=== PATIENT | female | born 1965 | race African-American/Black ===

== ENCOUNTER 2017-08-14 22:55 | Emergency (ER) | payer OTHER ==
[~2017-08-14] VITALS: Ht 157.5 cm; Wt 89.4 kg
--- NOTE | ~2017-08-14 | HC ---
[facility] [place] [address] CONSULTATION Name: MICAELA BEST Room #: DEP Ramana#: [id number] Admission: 08/14/17 Attend Phys: Discharge: 08/15/17 Date of : 63 Report #: [id number] THIS REPORT FOR: //name// CC: CHARLIE Celeste DATE OF SERVICE: 08/15/2017 HISTORY OF PRESENT ILLNESS: The patient is a 51-year-old female who was eating chicken last evening, which became stuck. She was unable to swallow her saliva after this. I received a phone call on 08/15/2017 at approximately 1:00 in the morning. I spoke to the Emergency Room physician and plan is for EGD later this morning. The patient has been having dysphagia and was actually seen by another front desk supervisor, Dr. Leigh, underwent an upper endoscopy early July of this year in which she was noted to have a mild narrowing in her cricopharyngeal area. She states she feels as if food impaction is low at this time. She was apparently given glucagon in the Emergency Room and this did not resolve her dysphagia and food impaction. She does have a history of some reflux. She is taking Protonix on a regular basis. She denies any shortness of breath. No fevers or chills. PAST MEDICAL HISTORY: History of dysphagia, gastroesophageal reflux disease, history of constipation and depression. MEDICATIONS ON ADMISSION: MiraLax, prazosin, Prozac, Ambien, Bentyl, Singulair, oxybutynin, Zovirax. REVIEW OF SYSTEMS: As per HPI. SOCIAL HISTORY: She denies any tobacco or alcohol use. FAMILY HISTORY: Negative for colon cancer. The patient apparently had a colonoscopy within the last few years in which polyps were removed. PHYSICAL EXAMINATION: VITAL SIGNS: Temperature is 98.3, pulse 51, blood pressure 110/67, respiratory rate is 16. GENERAL: She is alert and oriented x 3, in no acute distress. HEENT: Sclerae nonicteric. Oropharynx clear. NECK: Supple, without lymphadenopathy. CARDIOVASCULAR: Regular rate and rhythm. CHEST: Clear to auscultation bilaterally. ABDOMEN: Soft. She is nontender, nondistended, normoactive bowel sounds. EXTREMITIES: No cyanosis, clubbing or edema. [facility] [address] [place] [address] CONSULTATION Name: MICAELA BEST Room #: DEP [facility].#: [id number] Admission: 08/14/17 Attend Phys: Discharge: 08/15/17 Date of : 63 Report #: [id number] LABORATORY DATA: Sodium 140, potassium 3.9, chloride 107, bicarbonate 26, BUN 15, creatinine 0.9, AST 17, lipase 150, total bilirubin 0.2, alkaline phosphatase 83, ALT is 25, albumin 3.4. WBC is 6.6, hemoglobin 12.5, platelet count is 171. UA was negative. HCG is negative. ASSESSMENT AND PLAN: Dysphagia, food impaction. We will proceed with upper endoscopy for further evaluation. We will make further recommendations after endoscopy. Thank you for allowing me to participate in her care. <ELECTRONICALLY SIGNED> By: Emre Mcelroy MD 08/16/17 0809 0830 1212 Emre Mcelroy MD /nt
--- NOTE | ~2017-08-14 | P ---
[facility] [place] [address] PROCEDURE REPORT Name: MICAELA BEST [id number] Admission: 08/14/17 Attend Phys: Discharge: 08/15/17 Date of : 63 Report #: [id number] THIS REPORT FOR: //name// CC: CHARLIE Celeste DATE OF SERVICE: 08/15/2017 PROCEDURE PERFORMED: Upper endoscopy with esophageal dilation. HISTORY OF PRESENT ILLNESS: The patient is a 51-year-old female with a history of dysphagia; gastroesophageal reflux disease, on Protonix; was eating chicken last evening when this became stuck. She has had a recent upper endoscopy with dilation of a cricopharyngeal narrowing at the beginning of July by Dr. Leigh. Plan is for EGD. DESCRIPTION OF PROCEDURE: The risks and benefits of the procedure were explained to the patient, those risks including but not limited to bleeding, perforation, the risk of sedation. She understood these risks and gave informed consent. Sedation was given using propofol per Anesthesia. Next, using a standard Lecorpioinon upper endoscope, the scope was placed in the patient's mouth and advanced under direct vision through the esophagus, stomach and into the second portion of the duodenum. The larynx was normal in appearance. There was mild narrowing in the upper esophagus. No food bolus was noted throughout the esophagus today. The mid and distal esophagus was normal. The GE junction was normal. No stricture or distal bleeding. Overall, the gastric mucosa was normal. No evidence of food within the stomach. The pylorus was normal and patent. The duodenal bulb, first and second portion were all normal. The scope was then brought back up into the patient's stomach and a Savary guidewire was inserted through the scope, leaving the guidewire in place as the scope was then withdrawn. Next, a 51-Armenian Savary dilation of the esophagus was then performed without difficulty. The wire and dilator removed. The scope was reintroduced into the patient's stomach. There was a small mucosal tear in the upper esophagus after dilation. No bleeding was noted. At this point, the scope was then withdrawn and the procedure terminated. The patient tolerated the procedure well. IMPRESSION: 1. Mild narrowing of the proximal esophagus, status post dilation. 2. No evidence of food impaction at this time. The patient likely passed on her own. 3. Otherwise, normal upper endoscopy. RECOMMENDATIONS: [address] [address] PROCEDURE REPORT Name: MICAELA BEST Room #: DEP ER Ramana#: [id number] Admission: 08/14/17 Attend Phys: Discharge: 08/15/17 Date of : 63 Report #: [id number] 1. Observe the patient post-dilation. 2. Would followup with Dr. Leigh, her agriculture manager. Thank you for allowing me to participate in her care. <ELECTRONICALLY SIGNED> By: Emre Mcelroy MD 08/15/17 1128 0832 1120 Emre Mcelroy MD /chang
[2017-08-15 00:43] LABS: ABSOLUTE NEUTROPHILS 3.3 thou/uL (1.4-8.2); BASOPHILS 0.5 % (0.0-2.0); EOSINOPHILS 1.6 % (0.0-3.0); HEMATOCRIT 37.3 % (37.0-47.0); HEMOGLOBIN 12.5 gm/dL (12.0-15.0); LYMPHOCYTES 42.1 % (24.0-44.0); MCHC 33.5 g/dL (28.0-37.0); MCV 86.6 fL (80.0-100.0); MONOCYTES 6.3 % (1.0-8.0); PLATELET COUNT 171 thou/uL (150-400); POLYS 49.5 % (36.0-66.0); RBC 4.31 mil/uL (4.20-5.00); RDW 13.7 % (10.5-14.5); WBC 6.6 thou/uL (4.0-11.0)
[2017-08-15 00:45] LABS: URINE BILIRUBIN NEGATIVE (Negative); URINE BLOOD NEGATIVE (Negative); URINE CLARITY CLEAR; URINE COLOR YELLOW; URINE GLUCOSE-RANDOM* NEGATIVE (Negative); URINE KETONES NEGATIVE (Negative); URINE LEUKOCYTES-REFLEX NEGATIVE (Negative); URINE NITRITE-REFLEX NEGATIVE (Negative); URINE PROTEIN (DIPSTICK) NEGATIVE (Negative); URINE SPECIFIC GRAVITY <= 1.005 (1.005-1.035); URINE UROBILINOGEN 0.2 E.U./dl (0.2-1.0)
[2017-08-15 00:51] LABS: CREATININE 0.9 mg/dL (0.6-1.0); POTASSIUM 3.9 mmol/L (3.5-5.1)
[2017-08-15 00:57] LABS: ALBUMIN 3.4 g/dL (3.4-5.0); TOTAL BILIRUBIN 0.2 mg/dL (<0.1-1.0); TOTAL PROTEIN 6.6 g/dL (6.4-8.2)
[2017-08-15] MEDS ORDERED: TRIAMCINOLONE A80 G2 TOP (01:03)
[2017-08-15] MEDS ORDERED: MIRALAX17 GM PO (01:04)
[2017-08-15] MEDS ORDERED: PRAZOSIN 1 MG CA1 M1 PO (01:06)
[2017-08-15] MEDS ORDERED: PROZAC20 MG PO ×2 (01:07→01:13)
[2017-08-15] MEDS ORDERED: AMBIEN 5 MG TABL5 M1 PO ×2 (01:07→01:13)
[2017-08-15] MEDS ORDERED: BENTYL 20 MG TA20 M1 PO (01:08)
[2017-08-15] MEDS ORDERED: SINGULAIR 10 MG10 M1 PO (01:09)
[2017-08-15] MEDS ORDERED: OXYBUTYNIN 5 MG5 M2 PO (01:10)
[2017-08-15] MEDS ORDERED: ACYCLOVIR 400400 MG PO (01:11)
[2017-08-15] MEDS ORDERED: ACCUNEB SO1.25 MG/1 INH (01:12)
[2017-08-15] MEDS ORDERED: BISACODYL SUPP10 MG RECTAL (01:14)
[2017-08-15 07:20] VITALS: BP 110/67
== END 2017-08-15 07:21 | disposition home or self-care (01) ==
LOC: ER 22:55
PROVIDERS: Emergency Medicine
DX: T18.128A Food in esophagus causing other injury, initial encounter (principal); X58.XXXA Exposure to other specified factors, initial encounter; Y93.89 Activity, other specified; Y92.89 Other specified places as the place of occurrence of the external cause; Y99.8 Other external cause status
CPT/HCPCS: 62110; 62900

== ENCOUNTER 2017-09-24 01:43 | Emergency (ER) | payer OTHER ==
[~2017-09-24] VITALS: Ht 157.5 cm; Wt 89.8 kg
--- NOTE | ~2017-09-24 | EKG ---
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
[~2017-09-24 01:43] MED LIST: ACCUNEB SO1.25 MG/1 INH; ACYCLOVIR 400400 MG PO; AMBIEN 5 MG TABL5 M1 PO; BENTYL 20 MG TA20 M1 PO; BISACODYL SUPP10 MG RECTAL; MIRALAX17 GM PO; OXYBUTYNIN 5 MG5 M2 PO; PRAZOSIN 1 MG CA1 M1 PO; PROZAC20 MG PO; SINGULAIR 10 MG10 M1 PO; TRIAMCINOLONE A80 G2 TOP
[2017-09-24 02:44] LABS: URINE BILIRUBIN NEGATIVE (Negative); URINE BLOOD NEGATIVE (Negative); URINE CLARITY CLEAR; URINE COLOR YELLOW; URINE GLUCOSE-RANDOM* NEGATIVE (Negative); URINE KETONES NEGATIVE (Negative); URINE NITRITE-REFLEX NEGATIVE (Negative); URINE PROTEIN (DIPSTICK) NEGATIVE (Negative); URINE SPECIFIC GRAVITY <= 1.005 (1.005-1.035); URINE UROBILINOGEN 0.2 E.U./dl (0.2-1.0)
[2017-09-24 02:46] LABS: ABSOLUTE NEUTROPHILS 3.4 thou/uL (1.4-8.2); BASOPHILS 0.4 % (0.0-2.0); EOSINOPHILS 1.7 % (0.0-3.0); HEMOGLOBIN 12.6 gm/dL (12.0-15.0); LYMPHOCYTES 41.4 % (24.0-44.0); MCH 28.6 pg (26.0-34.0); MCHC 33.2 g/dL (28.0-37.0); MCV 86.2 fL (80.0-100.0); MONOCYTES 6.2 % (1.0-8.0); PLATELET COUNT 183 thou/uL (150-400); POLYS 50.3 % (36.0-66.0); RDW 13.1 % (10.5-14.5); WBC 6.7 thou/uL (4.0-11.0)
[2017-09-24 02:47] LABS: POTASSIUM 3.3 mmol/L (3.5-5.1)
[2017-09-24 02:49] LABS: URINE LEUKOCYTES-REFLEX TRACE (Negative)
[2017-09-24 02:53] LABS: ALBUMIN 3.6 g/dL (3.4-5.0); TOTAL BILIRUBIN 0.4 mg/dL (<0.1-1.0); TOTAL PROTEIN 6.7 g/dL (6.4-8.2)
[2017-09-24] MEDS ORDERED: ZOFRAN ODT8 MG PO (04:17)
[2017-09-24 04:19] VITALS: BP 118/71
== END 2017-09-24 04:26 | disposition home or self-care (01) ==
LOC: ER 01:43
PROVIDERS: Emergency Medicine
DX: T18.120A Food in esophagus causing compression of trachea, initial encounter (principal); K22.2 Esophageal obstruction; K21.9 Gastro-esophageal reflux disease without esophagitis; Z88.0 Allergy status to penicillin; X58.XXXA Exposure to other specified factors, initial encounter; Y93.89 Activity, other specified; Y92.89 Other specified places as the place of occurrence of the external cause; Y99.8 Other external cause status

== ENCOUNTER 2017-11-12 13:42 | Emergency (ER) | payer OTHER ==
[~2017-11-12] VITALS: Ht 157.5 cm; Wt 89.8 kg
--- NOTE | ~2017-11-12 | EKG ---
[place] [address] [facility] [place] [address] ELECTROCARDIOGRAM REPORT Name: MICAELA BEST Room #: DEP Ramana#: [id number] Admission: 11/12/17 Attend Phys: Discharge: 11/12/17 Date of : 63 Report #: [id number] THIS REPORT FOR: //name// [facility] ED Test Date: 2017-11-12 Test Time: 13:48:04 Pat Name: MICAELA BEST Department: Room: Gender: F Jack Prizer: [facility] : 1965 Requested By: Ness Patel Order Number: [id number] MD: Mirza Canseco Measurements Intervals [place] Rate: 57 P: 38 RI: 156 QRS: 31 QRSD: 88 T: 23 QT: 425 QTc: 414 Interpretive Statements Sinus bradycardia Borderline T wave abnormalities Compared to ECG 09/24/2017 01:51:27 No significant change was found Electronically Signed On 11-13-2017 14:06:34 CDT by Mirza Canseco [email or web address] <ELECTRONICALLY SIGNED> By: Mirza Canseco MD, [facility] 11/13/17 1406 1348 1348 Mirza Canseco MD, FACC /EPI
[~2017-11-12 13:42] MED LIST changes: +ZOFRAN ODT8 MG PO
[2017-11-12 18:46] VITALS: BP 125/72
== END 2017-11-12 18:47 | disposition home or self-care (01) ==
LOC: ER 13:42
DX: K20.9 Esophagitis, unspecified (principal); K22.4 Dyskinesia of esophagus; L94.0 Localized scleroderma [morphea]; K21.9 Gastro-esophageal reflux disease without esophagitis; Z88.0 Allergy status to penicillin
CPT/HCPCS: 62110; 62900

== ENCOUNTER 2018-06-24 16:07 | Emergency (ER) | payer OTHER ==
[~2018-06-24] VITALS: Ht 157.5 cm; Wt 94.8 kg
[2018-06-24] MEDS ORDERED: UNICOMPLEX M TA1 TA1 PO (16:38)
[2018-06-24] MEDS ORDERED: BENTYL 10 MG CA10 M1 PO (16:39)
[2018-06-24] MEDS ORDERED: OXYBUTYNIN 5 MG5 M2 PO (16:39)
[2018-06-24] MEDS ORDERED: SINGULAIR 10 MG10 M1 PO (16:39)
[2018-06-24] MEDS ORDERED: DULCOLAX10 MG RECTAL (16:40)
[2018-06-24] MEDS ORDERED: PROTONIX40 M1 PO (16:41)
[2018-06-24] MEDS ORDERED: ZANTAC 150MG T150 MG PO (16:41)
[2018-06-24] MEDS ORDERED: NAPROSYN500 MG PO (16:57)
[2018-06-24] MEDS ORDERED: NORFLEX100 MG PO (16:57)
[2018-06-24 17:14] VITALS: BP 128/81
--- NOTE | 2018-06-25 22:06 | EKG ---
[address] [address] ELECTROCARDIOGRAM REPORT Name: MICAELA BEST Room #: [facility] Ramana#: [id number] Admission: 06/24/18 Attend Phys: Discharge: 06/24/18 Date of : 63 Report #: [id number] THIS REPORT FOR: //name// 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 : 1965 Requested By: Ramon Lunsford Order Number: [id number] MD: Moustapha Santiago Measurements Intervals [place] Rate: 63 P: 37 GA: 155 QRS: 22 QRSD: 88 T: 31 QT: 408 QTc: 418 Interpretive Statements Sinus rhythm Compared to ECG 11/12/2017 13:48:04 Sinus bradycardia no longer present T-wave abnormality no longer present Electronically Signed On 06-25-2018 22:05:53 ORGANIZATIONAL EFFECTIVENESS CONSULTANT by Moustapha Santiago [email or web address] <ELECTRONICALLY SIGNED> By: Moustapha Santiago MD 06/25/18 2205 21 21 Moustapha Santiago MD /MARINO
== END 2018-06-24 17:15 | disposition home or self-care (01) ==
LOC: ER 16:07
DX: M43.6 Torticollis (principal); K21.9 Gastro-esophageal reflux disease without esophagitis; Z88.0 Allergy status to penicillin

== ENCOUNTER 2018-08-25 23:35 | Emergency (ER) | payer OTHER ==
[~2018-08-25] VITALS: Ht 157.5 cm; Wt 95.7 kg
[~2018-08-25 23:35] MED LIST changes: +BENTYL 10 MG CA10 M1 PO; +DULCOLAX10 MG RECTAL; +NAPROSYN500 MG PO; +NORFLEX100 MG PO; +PROTONIX40 M1 PO; +UNICOMPLEX M TA1 TA1 PO; +ZANTAC 150MG T150 MG PO
[2018-08-25 23:52] LABS: BASOPHILS 0.5 % (0.0-2.0); EOSINOPHILS 1.7 % (0.0-3.0); HEMATOCRIT 40.9 % (37.0-47.0); HEMOGLOBIN 13.6 gm/dL (12.0-15.0); LYMPHOCYTES 40.2 % (24.0-44.0); MCH 28.5 pg (26.0-34.0); MCHC 33.2 g/dL (28.0-37.0); MCV 85.8 fL (80.0-100.0); MONOCYTES 6.2 % (1.0-8.0); PLATELET COUNT 215 thou/uL (150-400); POLYS 51.4 % (36.0-66.0); RBC 4.77 mil/uL (4.20-5.00); RDW 14.6 % (10.5-14.5); WBC 7.9 thou/uL (4.0-11.0)
[2018-08-25 23:59] LABS: ANION GAP 10 mmol/L (7-16); BUN 13 mg/dL (7-18); CALCIUM 9.8 mg/dL (8.5-10.1); CHLORIDE 105 mmol/L (98-107); CO2 27 mmol/L (21-32); GLUCOSE 103 mg/dL (74-106); POTASSIUM 3.8 mmol/L (3.5-5.1); SODIUM 142 mmol/L (136-145)
[2018-08-26 00:09] LABS: ALBUMIN 4.3 g/dL (3.4-5.0); MAGNESIUM 2.1 mg/dL (1.8-2.4); SGOT 18 U/L (15-37); SGPT 30 U/L (30-65); TOTAL BILIRUBIN 0.3 mg/dL (<0.1-1.0); TOTAL PROTEIN 7.7 g/dL (6.4-8.2); TROPONIN-I <0.06 ng/mL (<0.06)
[2018-08-26] MEDS ORDERED: CARAFATE1 GM/10 ML PO (01:09)
[2018-08-26] MEDS ORDERED: NITROSTAT0.3 MG SUBLING (01:09)
[2018-08-26 01:40] VITALS: BP 122/71
--- NOTE | 2018-08-26 09:03 | EKG ---
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 : 1965 Requested By: Ramon Lunsford Order Number: [id number] MD: Casey Quinteros Measurements Intervals [place] Rate: 60 P: 38 MS: 162 QRS: 14 QRSD: 98 T: 7 QT: 544 QTc: 544 Interpretive Statements Sinus rhythm Left ventricular hypertrophy Nonspecific T abnrm, anterolateral leads Prolonged QT interval Compared to ECG 06/24/2018 16:22:33 Left ventricular hypertrophy now present Prolonged QT interval now present Electronically Signed On 08-26-2018 9:03:24 CDT by Casey Quinteros [email or web address] ��������������������������������������������� <ELECTRONICALLY SIGNED> ���������������������������������������� By: Casey Quinteros MD ��������������������������������������������� 08/26/18 0903 0048 0048 Casey Quinteros MD /MARINO
--- NOTE | 2018-08-27 10:26 | EKG ---
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: blake : 1965 Requested By: Ramon Lunsford Order Number: [id number] MD: Casey Quinteros Measurements Intervals [place] Rate: 70 P: 57 GA: 167 QRS: 47 QRSD: 147 T: 38 QT: 399 QTc: 431 Interpretive Statements Sinus rhythm Nonspecific T-wave abnormalities Compared to ECG 06/24/2018 16:22:33 Electronically Signed On 08-27-2018 10:26:34 CDT by Casey Quinteros [email or web address] ��������������������������������������������� <ELECTRONICALLY SIGNED> ���������������������������������������� By: Casey Quinteros MD ��������������������������������������������� 08/27/18 1026 2344 2344 Casey Quinteros MD /MARINO
== END 2018-08-26 01:49 | disposition home or self-care (01) ==
LOC: ER 23:35
PROVIDERS: Emergency Medicine
DX: K22.4 Dyskinesia of esophagus (principal); L94.0 Localized scleroderma [morphea]; R07.89 Other chest pain; K21.9 Gastro-esophageal reflux disease without esophagitis; Z88.0 Allergy status to penicillin

== ENCOUNTER 2018-08-31 12:52 | Inpatient (IN) | payer OTHER ==
[~2018-08-31] VITALS: Ht 157.5 cm; Wt 95.6 kg
--- NOTE | ~2018-08-31 | P ---
[facility] [place] [address] PROCEDURE REPORT Name: MICAELA BEST Room #: 200-I ADM IN M.R.#: [id number] Admission: 08/31/18 ������������������ Attend Phys: Stephen Beverly MD Discharge: ������������������ Date of : 63 Report #: [id number] THIS REPORT FOR: //name// CC: Stephen Beverly FAM unknown Physician staff DATE OF SERVICE: 09/01/2018 INPATIENT UPPER ENDOSCOPY BRIEF HISTORY: The patient is a 52-year-old woman who presented with atypical chest pain, was thought to be noncardiac in etiology. PREOPERATIVE DIAGNOSIS: Atypical chest pain. POSTOPERATIVE DIAGNOSES: 1. Mild to moderate gastritis with scattered erosions. 2. Dysphagia. MEDICATIONS: Deep sedation with propofol per anesthesia. SPECIMEN: Biopsies of gastritis. ESTIMATED BLOOD LOSS: 3 mL. PROCEDURE: Esophagogastroduodenoscopy with biopsy and Tran dilation. FINDINGS: Prior to propofol sedation, procedure of upper endoscopy and dilation were discussed with the patient as well as potential risks and its complications. She indicates she understands and desires to proceed. DESCRIPTION OF PROCEDURE: With the patient in left decubitus position, the Olympus video endoscope was inserted in cervical esophagus under direct vision without difficulty. Examination of this organ through its entire length revealed normal esophageal mucosa down the squamocolumnar junction. Squamocolumnar junction was inspected and noted to be unremarkable. No ulcers, erosions or strictures were seen. Also, there was no endoscopic evidence of scleroderma in her esophagus. The scope was advanced in the stomach, was examined on end view as well as retroflexed views. There was a pattern of a diffuse erythematous gastritis and a few tiny erosions were scattered about the stomach, but extensive erosive changes or ulcers were not seen. Multiple biopsies were obtained. On retroflexion, no mass lesions were seen in the proximal stomach. The pylorus, duodenal bulb and postbulbar sweep were inspected and noted to be unremarkable. At that point, the scope was slowly withdrawn and careful circumferential views confirmed the above findings. [facility] [address] [place] [address] PROCEDURE REPORT Name: NASIRMICAELA YAHAIRA Room #: 200-I ADM IN .R.#: [id number] Admission: 08/31/18 ������������������ Attend Phys: Stephen Beverly MD Discharge: ������������������ Date of : 63 Report #: [id number] patient tolerated the procedure well. She was subsequently dilated with passage of 50-Uzbek Tran dilator due to her history of recurrent dysphagia and previous food bolus obstruction in esophagus. No resistance was encountered. DISPOSITION: The patient with complaints of atypical chest pain and dysphagia. There is a question of scleroderma in the past, but she tells me today that was never confirmed by a proof technician. Also, her hands are normal on physical examination. She was dilated based on symptoms and she has had previous food bolus obstruction in esophagus. We will follow up on biopsies obtained today. Continue PPI at this point in time. She reports there was some radiation of the pain in her back, so we will obtain an ultrasound of the gallbladder to evaluate for gallbladder disease. ��������������������������������������������� ���������������������������������������� By: ��������������������������������������������� 1455 0854 Estevan Chandra MD /nt
[2018-08-31 12:52] VITALS: BP 136/78
[~2018-08-31 12:52] MED LIST changes: +CARAFATE1 GM/10 ML PO; +NITROSTAT0.3 MG SUBLING
[2018-08-31 13:20] LABS: HEMATOCRIT 38.1 % (37.0-47.0); MCH 29.1 pg (26.0-34.0); MCHC 34.2 g/dL (28.0-37.0); MCV 84.9 fL (80.0-100.0); RBC 4.48 mil/uL (4.20-5.00); WBC 5.9 thou/uL (4.0-11.0)
[2018-08-31 13:29] LABS: ANION GAP 11 mmol/L (7-16); BUN 10 mg/dL (7-18); CALCIUM 9.6 mg/dL (8.5-10.1); CHLORIDE 105 mmol/L (98-107); CO2 25 mmol/L (21-32); GLUCOSE 120 mg/dL (74-106); POTASSIUM 3.8 mmol/L (3.5-5.1); SODIUM 141 mmol/L (136-145)
[2018-08-31 13:38] LABS: ALBUMIN 3.7 g/dL (3.4-5.0); SGOT 17 U/L (15-37); SGPT 29 U/L (30-65); TOTAL BILIRUBIN 0.4 mg/dL (<0.1-1.0); TROPONIN-I <0.06 ng/mL (<0.06)
[2018-08-31 15:50] VITALS: BP 133/80
[2018-08-31 16:30] VITALS: BP 122/69
[2018-08-31 16:32] VITALS: BP 162/90
--- NOTE | 2018-08-31 17:17 | EKG ---
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: JIM : 1965 Requested By: Odalis Ramos Order Number: [id number] MD: Moustapha Santiago Measurements Intervals [place] Rate: 61 P: -73 AK: 127 QRS: 37 QRSD: 88 T: 2 QT: 434 QTc: 438 Interpretive Statements Sinus or ectopic atrial rhythm Borderline T abnormalities, inferior leads Compared to ECG 08/26/2018 00:48:11 Ectopic atrial rhythm now present T-wave abnormality now present Sinus rhythm no longer present Left ventricular hypertrophy no longer present Prolonged QT interval no longer present Electronically Signed On 08-31-2018 17:17:21 CDT by Moustapha Santiago [email or web address] ��������������������������������������������� <ELECTRONICALLY SIGNED> ���������������������������������������� By: Moustapha Santiago MD ��������������������������������������������� 08/31/18 1717 1306 1306 Moustapha Santiago MD /EPI
--- NOTE | 2018-08-31 19:40 | NUR ---
ASSUMED CARE OF PATIENT AT 1645 FROM ED. ASSESSMENTS CHARTED. ADMISSION COMPLETED. PATIENT GIVEN IV MORPHINE FOR NON CARDIAC CHEST PAIN IMMEDIATELY UPON ADMISSION TO . PATIENT STATES PARTIAL RELIEF OF SYMPTOMS. TELE MONITOR PLACED AND ADMISSION STRIP PRINTED AND PLACED IN CHART. FALLS CONTRACT SIGNED. PATIENT IS UP AD JORDAN. PATIENT IS PLACED ON A CLEAR LIQUID DIET. PATIENT IS TO CONTINUE WITH POC.
[2018-08-31 20:34] VITALS: BP 120/56
[2018-09-01] VITALS (8 sets, daily range): BP systolic 101–124; BP diastolic 54–69
--- NOTE | 2018-09-01 05:35 | NUR ---
ASSUME CARE 1900. PT COMPLAINS OF CONSTANT CHEST PAIN. MORPHINE Q4 FOR RELIEF. UP AD JORDNA. ASSESSMENT CHARTED. PROGRESSING WITH POC. PLAN IS TO KEEP PT NPO FOR GI TO SEE PT TODAY. SB ON MONITOR. WILL CONTINUE TO FOLLOW WITH POC
[2018-09-01 06:44] LABS: HEMATOCRIT 34.8 % (37.0-47.0); HEMOGLOBIN 11.6 gm/dL (12.0-15.0); MCH 28.6 pg (26.0-34.0); MCHC 33.2 g/dL (28.0-37.0); MCV 86.2 fL (80.0-100.0); RBC 4.04 mil/uL (4.20-5.00); RDW 14.2 % (10.5-14.5); WBC 4.7 thou/uL (4.0-11.0)
[2018-09-01 07:02] LABS: CALCIUM 8.8 mg/dL (8.5-10.1); POTASSIUM 4.1 mmol/L (3.5-5.1)
--- NOTE | 2018-09-01 19:31 | NUR ---
ASSUMED CARE OF PT AT 0700. PT ALERT AND ORIENTED X4. PT REPORTED HEAD PAIN RATING IT A 10, AND CHEST PAIN RATED A 8. AN ORDER FOR ACETAMINOPHEN 650 MG WAS ORDERED BY . PT REPORTED THAT IT "TOOK THE EDGE OFF" BUT DID NOT RELIEVE HEADACHE. WITH REST AND DIMMING LIGHTS, PT'S HEADACHE WAS RELIEVED AFTER ADMINISTRATION OF MORPHINE PRESCRIBED. PT MAINTAINED A PAIN OF 8 IN THE CHEST AREA, ALONGSIDE NAUSEA AND VOMITING. PAIN WAS NONCARDIAC CHEST PAIN. PT LEFT FOR EGD AT 1300. PT RETURNED REPORTING NAUSEA AND EPIGASTIRC PAIN. ZOFRAN WAS GIVEN FOR NAUSEA. PT WAS UNABLE TO KEEP FOOD DOWN. PT CONTINUES TO REPORT A NONCARDIAC CHEST PAIN OF 8 DESPITE MEDICATIONS GIVEN. WILL CONTINUE TO MONITOR PT PAIN.
--- NOTE | 2018-09-01 19:38 | NUR ---
I have reviewed the documentation by NICHELLE PASCUAL from 699 to 1938 and I concur with it. POOL SALAS RN
[2018-09-02 04:30] VITALS: BP 122/64
--- NOTE | 2018-09-02 05:37 | NUR ---
ASSUME CARE 1900. PT/VITALS STABLE. CONSISTENT PAIN INCHEST AND BACK NOTED. ASSESSMENT AAS CHARTED. PROGRESING WITH POC. SR/SB ON MONITOR. PLAN IS NPO SINCE MIDNIGHT FOR ABDO TODAY. WILL CONTINUE TO MONITOR AND FOLLOW WITH POC
[2018-09-02 08:08] VITALS: BP 113/70
[2018-09-02 13:42] VITALS: BP 144/92
--- NOTE | 2018-09-02 15:54 | NUR ---
ASSUMED CARE OF PT AT 0700. PT A&OX4, UP AD JORDAN. PT DENIED PAIN TODAY. DR. BERRIOS ORDERED NITRO TABS FOR ESOPHOGEAL SPASMS. PT HAD NAUSEA THAT WAS PARTIALLY CONTROLLED BY MEDICATION. PT STATED SHE HAD VOMITED INTO TRASH BIN BUT NO EMESIS SEEN IN TRASH. PT GIVEN MIRALAX FOR CONSTIPATION AND PT ENCOURAGED TO AMBULATE. PT WAS SINUS NORA ON TELEMETRY WITH VITALS SIGNS WITHIN NORMAL LIMITS. WILL CONT WITH POC.
[2018-09-02 16:06] VITALS: BP 119/68
--- NOTE | 2018-09-03 05:34 | NUR ---
ASSUME CARE 1900. PT/VITALS STABLE. DENIES ANY PAIN. TOLERATES ACTIVITY WELL. UP AD JORDAN. ASSESSMENTR CHARTED. PROGRESSING WELL WITH POC. PLAN IS A POSSIBLE DISCHARGE HOME TODAY. WILL CONTINUE TO MONITOR AND FOLLOW WITH POC
[2018-09-03 05:38] VITALS: BP 119/71
[2018-09-03 10:37] VITALS: BP 119/71
--- NOTE | 2018-09-03 19:01 | NUR ---
ASSUMED CARE OF PT AT 0700. PT ALERT AND ORIENETD X 4. PT REPORTED HEADACHE TO PREVIOUS NURSE AND WAS GIVEN ACETAMINOPHEN PO FOR THE PAIN. PT REPORTED PAIN RELIEF. PT WAS UP AD JORDAN. PT WAS DISCHARGED AT 1000 AND WAS ABLE TO WALK OUT. PT DID NOT HAVE ANY QUESTIONS OR CONCERNS AT DISCHARGE AFTER DISCHARGE PAPERS WERE REVIEWED.
--- NOTE | 2018-09-03 19:12 | NUR ---
I have reviewed the documentation by NICHELLE PASCUAL, [facility] STUDENT, from 699 to 1911 and I concur with it. POOL SALAS, RN
--- NOTE | 2018-09-04 17:06 | PATH ---
[facility] [address] [place] [address] PATHOLOGY RPT PROCEDURE Name: PETRA PAZ Room #: 200-I DIS IN M.R.#: [id number] ������������������ Admission: 08/31/18 ������������������ Date of : 63 Discharge: 09/03/18 Report #: [id number] Path Case #: [id number] [facility] Accession Number: [id number] . 01 Material submitted: . stomach - BX OF GASTRITIS RO R/OUT H. PYLORI . 01 Clinical history: . Pre-OP DX: Nausea with vomiting, abdominal pain . 02 Diagnosis: Gastric mucosa, gastritis to rule out H. pylori, endoscopic biopsy: - Helicobacter pylori induced moderate active gastritis. - Negative for intestinal metaplasia or atrophy or dysplasia. - Properly controlled immunohistochemical stain showing moderate number of organisms present. (IUV:pit 09/04/2018) QTP/09/04/2018 . 02 Electronically signed: . July Bustillos MD, Pathologist NPI- [id number] . 01 Gross description: . Received in formalin labeled "Petra Paz, BX of gastritis," are 5 segments of osuna soft tissue measuring 1.4 x 0.9 x 0.2 cm in aggregate dimensions and ranging from 0.4 to 0.5 cm in maximum dimension. The specimen is submitted entirely in cassette A1. (TSD; 09/01/2018) TOB/TOB . 02 Pathologist provided ICD-10: K29.70, B96.81 . 02 CPT . 388528, D54325 Specimen Comment: A courtesy copy of this report has been sent to Specimen Comment: [phone], . Specimen Comment: Report sent to / DR WILKINS Performed at: [address] [id number] MD Louie Buchanan MD Phone: [phone] Performed at: [address] [id number] MD July Bustillos MD Phone: [phone]
== END 2018-09-03 11:31 | disposition home or self-care (01) | DRG 392 ==
LOC: ER 12:52 → EROBS 14:34 → 2N 14:34 → EROBS 16:36 → 2N 16:36
PROVIDERS: Physician Assistant; ADMIT Hospitalist
PROC: 0DB68ZX Excision of Stomach, Via Natural or Artificial Opening Endoscopic, Diagnostic (ICD-10-PCS; principal; 2018-09-01)
PROC: 0D758ZZ Dilation of Esophagus, Via Natural or Artificial Opening Endoscopic (ICD-10-PCS; 2018-09-01)
DX: K22.2 Esophageal obstruction (principal); K22.4 Dyskinesia of esophagus; K29.70 Gastritis, unspecified, without bleeding; K21.9 Gastro-esophageal reflux disease without esophagitis; R13.10 Dysphagia, unspecified; F17.210 Nicotine dependence, cigarettes, uncomplicated; F32.9 Major depressive disorder, single episode, unspecified; M34.9 Systemic sclerosis, unspecified; Z88.0 Allergy status to penicillin; Z86.010 Personal history of colon polyps; Z80.0 Family history of malignant neoplasm of digestive organs; Z90.710 Acquired absence of both cervix and uterus
CPT/HCPCS: 10081; 62110; 62900; 70005

== ENCOUNTER 2021-04-05 15:10 | Emergency (ER) | payer OTHER ==
[~2021-04-05] VITALS: Ht 157.5 cm; Wt 99.8 kg
[2021-04-05 15:38] LABS: URINE BILIRUBIN NEGATIVE (Negative); URINE BLOOD NEGATIVE (Negative); URINE CLARITY CLEAR; URINE COLOR YELLOW; URINE GLUCOSE-RANDOM* NEGATIVE (Negative); URINE KETONES NEGATIVE (Negative); URINE LEUKOCYTES-REFLEX NEGATIVE (Negative); URINE NITRITE-REFLEX NEGATIVE (Negative); URINE PROTEIN (DIPSTICK) NEGATIVE (Negative); URINE UROBILINOGEN 0.2 E.U./dl (0.2-1.0)
[2021-04-05 15:56] LABS: ABSOLUTE NEUTROPHILS 4.9 thou/uL (1.4-8.2); BASOPHILS 0.4 % (0.0-2.0); EOSINOPHILS 1.7 % (0.0-3.0); HEMOGLOBIN 13.3 gm/dL (12.0-15.0); LYMPHOCYTES 32.8 % (24.0-44.0); MCH 28.5 pg (26.0-34.0); MCHC 32.6 g/dL (28.0-37.0); MCV 87.5 fL (80.0-100.0); MONOCYTES 7.5 % (1.0-8.0); PLATELET COUNT 238 thou/uL (150-400); POLYS 57.6 % (36.0-66.0); RBC 4.69 mil/uL (4.20-5.00); RDW 14.4 % (10.5-14.5); WBC 8.5 thou/uL (4.0-11.0)
[2021-04-05 16:04] LABS: CALCIUM 9.6 mg/dL (8.5-10.1); CREATININE 1.2 mg/dL (0.6-1.0); POTASSIUM 3.8 mmol/L (3.5-5.1)
[2021-04-05 16:50] VITALS: BP 138/91
== END 2021-04-05 16:51 | disposition home or self-care (01) ==
LOC: ER 15:10
PROVIDERS: Nurse Practitioner
DX: K59.00 Constipation, unspecified (principal); R10.12 Left upper quadrant pain; K21.9 Gastro-esophageal reflux disease without esophagitis; Z79.891 Long term (current) use of opiate analgesic; Z79.1 Long term (current) use of non-steroidal anti-inflammatories (NSAID); Z79.899 Other long term (current) drug therapy; Z79.51 Long term (current) use of inhaled steroids; Z88.0 Allergy status to penicillin

== ENCOUNTER 2021-04-13 11:42 | Emergency (ER) | payer OTHER ==
[~2021-04-13] VITALS: Ht 157.5 cm; Wt 99.8 kg
[2021-04-13 12:11] VITALS: BP 131/86
[2021-04-13] MEDS ORDERED: JANUVIA100 MG PO (12:15)
[2021-04-13] MEDS ORDERED: METRONIDAZOLE500 M4 PO (12:16)
== END 2021-04-13 14:20 | disposition home or self-care (01) ==
LOC: ER 11:42
PROVIDERS: Emergency Medicine
DX: R05.9 Cough, unspecified (principal); Z20.822 Contact with and (suspected) exposure to COVID-19; R09.81 Nasal congestion; E66.9 Obesity, unspecified; K21.9 Gastro-esophageal reflux disease without esophagitis; Z88.0 Allergy status to penicillin; Z79.899 Other long term (current) drug therapy